=== PATIENT | female | born 1980 | race Hispanic/Latino ===

== ENCOUNTER 2018-06-13 10:29 | Outpatient (CLI) | payer OTHER ==
--- NOTE | 2018-06-13 10:56 | RAD ---
THREE VIEW LEFT SHOULDER: Indication: Fall, pain. FINDINGS: There is no fracture or dislocation. AC joint is maintained. IMPRESSION: No acute osseous abnormality left shoulder. POS: [facility]
--- NOTE | 2018-06-13 11:27 | RAD ---
LEFT RIBS GREATER AND EQUAL TO TWO VIEWS STANDARD: History: Fall. Comparison: None. FINDINGS: No displaced left sided rib fracture. Thoracic spine appears to be without acute compression fracture . IMPRESSION: No acute displaced rib fracture. POS: [facility]
== END 2018-06-13 10:30 | disposition home or self-care (01) ==
LOC: BICRAD 10:29
DX: R07.81 Pleurodynia (principal)